=== PATIENT | male | born 1970 | race Two or more races ===

== ENCOUNTER 2016-05-16 17:34 | Emergency (ER) | payer OTHER, BC ==
[2016-05-16 18:11] LABS: SPECIFIC GRAVITY 1.015 (1.001-1.030); URINE BILIRUBIN NEGATIVE (NEGATIVE); URINE BLOOD NEGATIVE (NEGATIVE); URINE GLUCOSE (UA) NEGATIVE (NEGATIVE); URINE LEUKOCYTE ESTERASE NEGATIVE (NEGATIVE); URINE NITRITE NEGATIVE (NEGATIVE); URINE PROTEIN NEGATIVE (NEGATIVE); URINE UROBILINOGEN NORMAL (0-1 mg/dl)
[2016-05-16 18:13] LABS: URINE APPEARANCE CLEAR; URINE COLOR YELLOW
== END 2016-05-16 19:02 | disposition home or self-care (01) ==
LOC: ED 17:34
DX: R10.9 Unspecified abdominal pain (principal); F17.210 Nicotine dependence, cigarettes, uncomplicated; X50.0XXA Overexertion from strenuous movement or load, initial encounter; Y93.89 Activity, other specified; Y92.89 Other specified places as the place of occurrence of the external cause; Y99.0 Civilian activity done for income or pay